=== PATIENT | male | born 1970 | race Two or more races ===

== ENCOUNTER 2019-07-17 22:41 | Emergency (ER) | payer SELFPAY ==
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
== END 2019-07-18 01:43 | disposition expired ==
LOC: EDBD 22:41 → MW.ED 22:41
DX: S21.342A Puncture wound with foreign body of left front wall of thorax with penetration into thoracic cavity, initial encounter (principal); I46.8 Cardiac arrest due to other underlying condition; W32.0XXA Accidental handgun discharge, initial encounter
CPT/HCPCS: 32551; 36430; 36556; 51702; 86920; 86921; 86922; 92950; 99285; G0390; P9016